=== PATIENT | female | born 1975 | race Caucasian/White ===

== ENCOUNTER 2020-06-17 09:31 | Day surgery (SDC) | payer OTHER ==
[2020-06-17] MEDS ORDERED: MIDAZOLAM HCL 2 MG/2 ML SINGLE DOSE VIAL ONE ×2 (11:17→11:31)
[2020-06-17] MEDS ORDERED: DEXAMETHASONE SOD PHOSPHATE 10 MG/1 ML VIAL ONE (11:17)
[2020-06-17] MEDS ORDERED: BUPIVACAINE HCL/PF 0.5% (5 MG/ML) 30 ML VIAL IJ ONE (11:18)
[2020-06-17] MEDS ORDERED: SODIUM CHLORIDE 0.9% P/F 10 ML VIAL IJ ONE (11:18)
[2020-06-17] MEDS ORDERED: BUPIVACAINE HCL/PF 0.25% (2.5MG/ML) 10 ML VIAL ONE (12:02)
[2020-06-17] MEDS ORDERED: PROPOFOL 20 ML ONE ×2 (12:23)
[2020-06-17] MEDS ORDERED: SUCCINYLCHOLINE CHLORIDE 200 MG/10 ML SYRINGE ONE (12:24)
[2020-06-17] MEDS ORDERED: ceFAZolin SODIUM 1 GM VIAL ONE (12:31)
[2020-06-17] MEDS ORDERED: ONDANSETRON 4 MG/2 ML VIAL ONE ×2 (12:31→15:01)
[2020-06-17] MEDS ORDERED: DEXAMETHASONE SOD PHOSPHATE 4 MG/1 ML VIAL ONE (12:31)
[2020-06-17] MEDS ORDERED: TRANEXAMIC ACID 1000 MG/10 ML VIAL ONE (12:34)
[2020-06-17] MEDS ORDERED: LORazepam 2 MG/ML SDV VIAL IVPUSH ONE (15:01)
[2020-06-17] MEDS ORDERED: PROMETHAZINE HCL 25 MG/1 ML VIAL IVPUSH PRN (15:01)
[2020-06-17] MEDS ORDERED: oxyCODONE HCL 5 MG TABLET PO PRN (15:01)
[2020-06-17] MEDS ORDERED: ONDANSETRON 4 MG/2 ML VIAL IVPUSH PRN (15:01)
[2020-06-17] MEDS ORDERED: ACETAMINOPHEN 1000 MG/100 ML VIAL (NON FORMULARY) IVPB ONE (15:01)
[2020-06-17] MEDS ORDERED: LORazepam 2 MG/ML SDV VIAL ONE (15:04)
[2020-06-17] MEDS ORDERED: ACETAMINOPHEN INJECTION 100 ML IVPB ONE (15:04)
[2020-06-17] MEDS ORDERED: HYDROmorphone HCl 2 MG/ML VIAL IVPUSH ONE (15:06)
[2020-06-17] MEDS ORDERED: LACTATED RINGERS SOLUTION 1,000 ML IV SCH (15:15)
[2020-06-17] MEDS ORDERED: oxyCODONE HCL 5 MG TABLET ONE (16:21)
[2020-06-17 18:08] VITALS: BP 107/63; PULSE 80; TEMP 98
== END 2020-06-17 18:51 | disposition home or self-care (01) ==
LOC: EDBD → FASU 09:31
PROVIDERS: ATTEND Orthopaedic Surgery Sports Medicine
PROC: 0SBD4ZZ Excision of Left Knee Joint, Percutaneous Endoscopic Approach (ICD-10-PCS; 2020-06-17)
PROC: 0SBD4ZZ Excision of Left Knee Joint, Percutaneous Endoscopic Approach (ICD-10-PCS; 2020-06-17)
PROC: 0MRN47Z Replacement of Right Knee Bursa and Ligament with Autologous Tissue Substitute, Percutaneous Endoscopic Approach (ICD-10-PCS; principal; 2020-06-17 12:53)
DX: S83.512A Sprain of anterior cruciate ligament of left knee, initial encounter (principal); X58.XXXA Exposure to other specified factors, initial encounter; Y93.9 Activity, unspecified; Y92.9 Unspecified place or not applicable; Y99.9 Unspecified external cause status; S83.242A Other tear of medial meniscus, current injury, left knee, initial encounter; M65.9 Synovitis and tenosynovitis, unspecified
CPT/HCPCS: 29881; 29888; C1713; 84703; 88304-TC; 94760; J0131; J1100